=== PATIENT | female | born 1965 | race Caucasian/White ===

== ENCOUNTER 2020-07-13 18:09 | Emergency (ER) | payer MEDICAID ==
[~2020-07-13] VITALS: Ht 162.6 cm; Wt 64.0 kg
[2020-07-13 19:17] LABS: BASOPHILS % 0.6 % (0.0-2.0); EOSINOPHILS % 2.3 % (0.0-5.0); HEMATOCRIT. 39.2 % (36.0-48.0); HEMOGLOBIN. 13.2 g/dL (12.0-16.0); LYMPHOCYTES % 43.7 % (20.0-50.0); MEAN CORPUSCULAR HEMOGLOBIN 31.2 pg (28.0-32.0); MEAN CORPUSCULAR VOLUME 92.7 fL (81.0-99.0); MEAN PLATELET VOLUME 8.7 fl (7.4-10.4); MONOCYTES % 7.9 % (2.0-8.0); NEUTROPHILS % 45.5 % (40.0-76.0); PLATELET 181 x1000/uL (130-400); RED BLOOD CELL COUNT 4.23 mill/uL (4.2-5.4); RED CELL DISTRIBUTION WIDTH 12.3 % (11.6-14.6)
[2020-07-13 19:26] LABS: CHLORIDE 106 mEq/L (98-107)
[2020-07-13] MEDS ORDERED: IBUPROFEN 400MG TABLET PO ONE (19:45)
[2020-07-13 20:16] VITALS: BP 119/83
== END 2020-07-13 20:17 | disposition home or self-care (01) ==
LOC: ER 18:09
DX: M54.89 Other dorsalgia (principal); E03.9 Hypothyroidism, unspecified; Z87.891 Personal history of nicotine dependence
CPT/HCPCS: 36415; 71045; 80053; 84484; 85025; 85379; 93005; 99285

== ENCOUNTER 2021-02-20 17:33 | Emergency (ER) | payer MEDICAID, OTHER ==
[~2021-02-20] VITALS: Ht 162.6 cm; Wt 66.0 kg
[~2021-02-20 17:33] MED LIST: FAMO-135 PO
[2021-02-20 17:40] VITALS: BP 160/76
== END 2021-02-20 22:36 | disposition left against medical advice (07) ==
LOC: ER 17:33
DX: R07.9 Chest pain, unspecified (principal); E03.9 Hypothyroidism, unspecified; Z53.21 Procedure and treatment not carried out due to patient leaving prior to being seen by health care provider
CPT/HCPCS: 93005; 99283

== ENCOUNTER 2021-02-22 09:33 | Emergency (ER) | payer OTHER ==
[~2021-02-22] VITALS: Ht 152.4 cm; Wt 75.0 kg
[2021-02-22] MEDS ORDERED: KETOROLAC 30MG/ML VIAL IV ONE (10:15)
[2021-02-22 10:58] LABS: BASOPHILS % 0.3 % (0.0-2.0); EOSINOPHILS % 1.6 % (0.0-5.0); HEMATOCRIT. 39.4 % (36.0-48.0); HEMOGLOBIN. 13.4 g/dL (12.0-16.0); LYMPHOCYTES % 24.4 % (20.0-50.0); MEAN CORPUSCULAR VOLUME 91.4 fL (81.0-99.0); MEAN PLATELET VOLUME 8.8 fl (7.4-10.4); MONOCYTES % 6.7 % (2.0-8.0); PLATELET 187 x1000/uL (130-400); RED BLOOD CELL COUNT 4.31 mill/uL (4.2-5.4); RED CELL DISTRIBUTION WIDTH 12.6 % (11.6-14.6)
[2021-02-22 11:03] LABS: CHLORIDE 108 mEq/L (98-107)
[2021-02-22] MEDS ORDERED: TOPUD PO (12:21)
[2021-02-22 12:45] VITALS: BP 101/76
== END 2021-02-22 12:50 | disposition home or self-care (01) ==
LOC: ER 09:33
DX: R07.89 Other chest pain (principal); E03.9 Hypothyroidism, unspecified; N83.209 Unspecified ovarian cyst, unspecified side
CPT/HCPCS: 36415; 71045; 80053; 83880; 84484; 85025; 93005; 96374; 99285; J1885

== ENCOUNTER 2022-02-10 09:06 | Emergency (ER) | payer MEDICAID, OTHER ==
[~2022-02-10] VITALS: Ht 162.6 cm; Wt 67.5 kg
[~2022-02-10 09:06] MED LIST changes: +TOPUD PO
[2022-02-10] MEDS ORDERED: ONDANSETRON HCL 4MG/2ML INJ IV ONE (09:45)
[2022-02-10] MEDS ORDERED: MORPHINE SULFATE 4 MG/ML CPJ (NOT FOR IM USE) IV ONE (09:45)
[2022-02-10 10:15] VITALS: BP 138/87
[2022-02-10] MEDS ORDERED: HYDR-4001 MT (11:12)
[2022-02-10] MEDS ORDERED: IBUP-2029 MT (11:12)
== END 2022-02-10 12:07 | disposition home or self-care (01) ==
LOC: ER 09:06
DX: S52.531A Colles' fracture of right radius, initial encounter for closed fracture (principal); S52.611A Displaced fracture of right ulna styloid process, initial encounter for closed fracture; E03.9 Hypothyroidism, unspecified; W01.0XXA Fall on same level from slipping, tripping and stumbling without subsequent striking against object, initial encounter; Y93.89 Activity, other specified; Y92.018 Other place in single-family (private) house as the place of occurrence of the external cause
CPT/HCPCS: 29125; 73110; 96374; 96375; 99284; J2270; J2405

== ENCOUNTER 2022-02-22 00:30 | Emergency (ER) | payer OTHER ==
[~2022-02-22] VITALS: Ht 162.6 cm; Wt 68.0 kg
[~2022-02-22 00:30] MED LIST changes: +HYDR-4001 MT; +IBUP-2029 MT
[2022-02-22 06:20] VITALS: BP 124/78
== END 2022-02-22 06:22 | disposition home or self-care (01) ==
LOC: ER 00:30
DX: S52.91XA Unspecified fracture of right forearm, initial encounter for closed fracture (principal); W18.30XA Fall on same level, unspecified, initial encounter; Y93.89 Activity, other specified; Y92.89 Other specified places as the place of occurrence of the external cause; Y99.8 Other external cause status
CPT/HCPCS: 99281

== ENCOUNTER 2023-03-27 06:25 | Emergency (ER) | payer OTHER ==
[~2023-03-27] VITALS: Ht 162.6 cm; Wt 68.0 kg
[2023-03-27 06:48] VITALS: TEMP 97.6; O2SAT 98
[2023-03-27 07:45] VITALS: BP 116/70; PULSE 70; RESP 19
[2023-03-27] MEDS ORDERED: IBUPROFEN 400MG TABLET PO ONE (07:45)
[2023-03-27 08:08] LABS: BASOPHILS % 0.5 % (0.0-2.0); HEMATOCRIT. 41.1 % (36.0-48.0); HEMOGLOBIN. 13.5 g/dL (12.0-16.0); LYMPHOCYTES % 23.1 % (20.0-50.0); MEAN CORPUSCULAR HGB CONC 32.9 g/dL (31.0-37.0); MEAN CORPUSCULAR VOLUME 94.2 fL (81.0-99.0); MEAN PLATELET VOLUME 8.4 fl (7.4-10.4); MONOCYTES % 5.5 % (2.0-8.0); NEUTROPHILS % 69.9 % (40.0-76.0); PLATELET 200 x1000/uL (130-400); RED BLOOD CELL COUNT 4.36 mill/uL (4.2-5.4); RED CELL DISTRIBUTION WIDTH 12.1 % (11.6-14.6); WHITE BLOOD COUNT 9.9 x1000/uL (4.5-11.0)
[2023-03-27 08:23] LABS: ALANINE AMINOTRANSFERASE 25 IU/L (10-49); ALBUMIN 4.1 g/dL (3.2-4.8); ASPARTATE AMINOTRANSFERASE 24 IU/L (<34); BILIRUBIN TOTAL 0.5 mg/dL (0.1-1.0); CALCIUM 9.2 mg/dL (8.7-10.4); CARBON DIOXIDE 29 mEq/L (21-32); CHLORIDE 107 mEq/L (98-107); CREATININE 0.6 mg/dL (0.6-1.0); GLUCOSE 80 mg/dL (70-105); POTASSIUM 4.1 mEq/L (3.5-5.1); PROTEIN TOTAL 6.3 g/dL (6.0-8.3); SODIUM 141 mEq/L (136-145); THYROID STIMULATING HORMONE 4.34 uIU/mL (0.55-4.78); UREA NITROGEN BLOOD 8 mg/dL (9-23)
[2023-03-27] MEDS ORDERED: IBUP-2028 PO (09:26)
== END 2023-03-27 09:47 | disposition home or self-care (01) ==
LOC: ER 06:25
DX: R51.9 Headache, unspecified (principal); N83.209 Unspecified ovarian cyst, unspecified side; Z98.890 Other specified postprocedural states
CPT/HCPCS: 36415; 80053; 81025; 84443; 85025; 99283